=== PATIENT | male | born 1975 | race Two or more races ===

== ENCOUNTER 2022-10-13 20:23 | Emergency (ER) | payer BC, OTHER ==
[~2022-10-13] VITALS: Ht 177.8 cm; Wt 122.7 kg
[2022-10-13 20:47] VITALS: BP 123/69
[2022-10-13] MEDS ORDERED: TETANUS-DIPTH-ACEL PERTUSSIS 0.5ML SYR Tdap IM ONE (23:45)
== END 2022-10-14 00:20 | disposition home or self-care (01) ==
LOC: ER 20:23
DX: S01.81XA Laceration without foreign body of other part of head, initial encounter (principal); W22.8XXA Striking against or struck by other objects, initial encounter; Y93.89 Activity, other specified; Y92.89 Other specified places as the place of occurrence of the external cause; Y99.8 Other external cause status
CPT/HCPCS: 12011; 90471; 90715

== ENCOUNTER 2023-09-17 07:08 | Emergency (ER) | payer BC, OTHER ==
[~2023-09-17] VITALS: Ht 172.7 cm; Wt 124.7 kg
[2023-09-17] MEDS ORDERED: METH4PAK PO ×2 (09:00)
[2023-09-17] MEDS ORDERED: EPINEPHrine HCL 1 MG/1 ML AMP SC ONE (09:00)
[2023-09-17] MEDS ORDERED: HYDR50CA PO (09:00)
[2023-09-17] MEDS ORDERED: TRIA0.02 TOP (09:04)
[2023-09-17] MEDS ORDERED: methylPREDNISolone SOD SUCC 125 MG/2 ML VL IM ONE (09:15)
[2023-09-17 09:16] VITALS: BP 126/98; PULSE 79; RESP 16; TEMP 98.2; O2SAT 97
== END 2023-09-17 10:07 | disposition home or self-care (01) ==
LOC: ER 07:08
DX: T78.49XA Other allergy, initial encounter (principal); Z79.899 Other long term (current) drug therapy; X58.XXXA Exposure to other specified factors, initial encounter
CPT/HCPCS: 96372; 99284; J0171; J2930